=== PATIENT | female | born 2005 | race Caucasian/White ===

== ENCOUNTER 2025-01-24 10:53 | Outpatient (AMB) | payer MEDICAID, SELFPAY ==
[2025-01-24 11:12] VITALS: BP 116/80; PULSE 79; RESP 18; TEMP 36; O2SAT 99; BMI 33.6
--- NOTE | 2025-01-24 11:12 | GYNCLNT_ITS ---
Vital Signs 01/24/25 11:12 Height 1.7 m Height Method Stated Weight 97.182 kg Weight Measurement Method Standing Scale BMI 33.6 BP 116/80 Blood Pressure Source Automatic Cuff Blood Pressure Location Left Upper Arm Position Sitting Respiration 18 Pulse 79 Pulse Source Monitor Temp 96.8 F Temp Source Oral Pulse Oximetry (%) 99 Oxygen Delivery Method Room Air Allergies/Home Meds Allergies & Medications Allergies No Known Allergies Allergy (Verified 01/24/25 11:17) Medication Reconciliation methocarbamol 750 mg tablet 750 mg PO TID #20 tabs 03/20/24 [Rx Confirmed 01/24/25] naproxen 500 mg tablet 500 mg PO BID #14 tabs 03/20/24 [Rx Confirmed 01/24/25] fluconazole 150 mg tablet 150 mg PO Q3D 2 doses #2 tabs 01/24/25 [Rx] Intake Visit Data Collection New Patient or Established: Established Patient (seen at [facility] within 3 years) Reason for Visit:: PCOS Seen by Clinical Staff ONLY (RN/MA): No White Washer Piler Required: No Do You Feel Safe at Home: Yes Authorities Contacted: N/A PCP or OBGYN visit in last 3 months: No Hx Now: No Are you currently on any form of Control: No Pain Present Currently: No Pain Scale Used: Cristina-Lea/Numerical Pain scale:: 0 Smoking Status Smoking Status: Never smoker 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 1. Little interest or pleasure in doing things: not at all 2. Feeling down, depressed, or hopeless: not at all Total score: 0 PHQ-9 3. Trouble falling or staying asleep, or sleeping too much: Not at all 4. Feeling tired or having little energy: Not at all 5. Poor appetite or overeating: Not at all 6. Feeling bad about yourself - or that you are a failure or have let yourself or your family down: Not at all 7. Trouble concentrating on things, such as reading the newspaper or watching television: Not at all 8. Moving or speaking so slowly that other people could have noticed? - Or the opposite - being so fidgety or restless that you have been moving around a lot more than usual: not at all 9. Thoughts that you would be better off or of hurting yourself in some way: Not at all Total score: 0 If you checked off any problems, how difficult have these problems made it for you to do your work, take care of things at home, or get along with other people?: not difficult at all Source: Developed by Drs. Tony San, Liya Londono, Seth Hanna and colleagues, with an educational nicky from [employer]. Depression screen completed yes Social History Living Situation History Marital Status: Single Lives With: Family Housing: House Tobacco History Smoking Status: Never smoker Second Hand Smoke Exposure: No Alcohol History Alcohol Intake: Never Domestic Abuse History Do You Feel Safe at Home: Yes Past Medical History Past Medical History Have you ever been diagnosed with any of the following: History of Present Illness HPI Narrative Chief Complaint Heavy periods for a few years, severe menstrual symptoms including really bad cramping and discomfort , nausea, dizziness, weakness, and lightheadedness on the first day of period, hair growth on chin and stomach, strange vaginal smells History of Present Illness Jennifer presents with a long-standing history of heavy menstrual periods and associated symptoms. She reports experiencing heavy periods for several years, with symptoms worsening since age 13. The patient's menstrual cycles are regular, occurring monthly. However, she experiences severe symptoms on the first day of her period, including intense cramping, nausea, dizziness, and near-fainting episodes. She describes feeling weak, lightheaded, and experiencing cold sweats. These symptoms are not consistent with every cycle, as she notes some periods are good while others are bad. Typically, her periods last 6 days and are heavy, although her most recent period lasted only 4 days and was less heavy, with reduced pain. Jennifer also reports acne, weight gain despite no changes in diet, and hair growth on her chin and stomach. Additionally, she has noticed unusual vaginal odors, not limited to her menstrual periods. She mentions a previous unsuccessful treatment for a yeast infection. The patient has not undergone any testing such as ultrasounds or blood tests for her menstrual issues. She has not tried control pills or any hormonal treatments, expressing concerns about their use based on her own research. Medical History - Yeast infection (previous) Review of Systems General: Positive for weakness, lightheadedness, cold sweats. Skin: Positive for acne, hair growth on chin and stomach. HEENT: Negative for vision changes. Cardiovascular: Positive for dizziness. Gastrointestinal: Positive for nausea. Genitourinary: Positive for heavy menstrual bleeding, dysmenorrhea, abnormal vaginal odor. Neurological: Positive for loss of balance. Endocrine: Positive for weight gain. Review of Systems Review of Systems Systems Reviewed: All systems reviewed, normal except as documented Exam General Limitations: no limitations General Appearance: alert, in no apparent distress, comfortable, cooperative, healthy appearing, well developed and well groomed Head Head exam: atraumatic, normocephalic and normal inspection Chest Chest inspection: Present normal inspection and symmetric chest wall rise Abdominal Abdominal exam: Present soft and normal bowel sounds Psych Psychiatric exam: Present normal affect and normal mood Skin Skin exam: Present warm, dry, intact and normal color Assessment & Plan Diagnosis / Problem List (1) Acute vaginitis: Status: Acute (2) Abnormal uterine and vaginal bleeding, unspecified: Status: Acute (3) PCOS (polycystic ovarian syndrome): Status: Acute (4) Dysmenorrhea in adolescent: Status: Acute Plan Jennifer, a young woman with a history of heavy menstrual periods since age 13, presents with dysmenorrhea, menorrhagia, and associated symptoms including nausea, dizziness, and cold sweats. Dysmenorrhea and Menorrhagia Assessment: Patient reports heavy menstrual periods with severe cramping and associated symptoms (nausea, dizziness, cold sweats, weakness, lightheadedness) primarily on the first day of menses. Symptoms have been ongoing for several years, starting around age 13. Menstrual cycles are regular, occurring monthly, but symptom severity varies. Recent cycle showed improvement with shorter duration (4 days vs. usual 6 days) and decreased flow. Differential diagnoses include premenstrual dysphoric disorder (PMDD) and polycystic ovary syndrome (PCOS). Further evaluation is necessary to determine the underlying cause. Plan: - Order pelvic ultrasound to evaluate for structural abnormalities and PCOS - Order blood tests to assess hormone levels and rule out other potential causes - Instruct patient to continue tracking menstrual cycles and symptoms using her ary - Discuss treatment options, including hormonal and non-hormonal alternatives, after test results are available - Provide patient education materials on menstrual disorders and treatment options Suspected Bacterial Vaginosis and Yeast Infection Assessment: Patient reports abnormal vaginal odor, not limited to menstrual periods. Previous treatment for yeast infection was ineffective. Symptoms suggest possible bacterial vaginosis, but concurrent yeast infection cannot be ruled out. Plan: - Prescribe combination treatment for both bacterial vaginosis and yeast infection - Provide patient education on vaginal health and hygiene Suspected Polycystic Ovary Syndrome (PCOS) Assessment: Patient reports acne, weight gain without dietary changes, and hair growth on chin and stomach. These symptoms, in combination with menstrual irregularities, raise suspicion for PCOS. Further evaluation is necessary for definitive diagnosis. Plan: - Include PCOS-specific hormone tests in the ordered blood work - Evaluate pelvic ultrasound results for polycystic ovaries - Discuss findings and potential management strategies at follow-up appointment Office Procedures OB Clinic LOC & Office Proc's Nursing/Assessment Patient Status: Established Patient OB Clinic Nursing Assessment: BP Monitoring, Update PMH in EMR and Vital Signs OB Clinic Coordination of Care: Consent,records obtained, informed consent, Education Simp Pt/Fam, Lab and Imaging orders and Staff clarify orders Established Patient Charge Established Patient Point Assignment: 85 Established Patient Point Charge: EP Level 3 (80-115)
== END 2025-01-24 11:28 | disposition home or self-care (01) ==
LOC: HODSOBC 10:53
PROVIDERS: PCP Physician Assistant; Referring Provider Physician Assistant; Supervising Provider Obstetrics & Gynecology; Visit Provider Obstetrics & Gynecology
DX: N76.0 Acute vaginitis (principal); E28.2 Polycystic ovarian syndrome; N93.9 Abnormal uterine and vaginal bleeding, unspecified; N94.6 Dysmenorrhea, unspecified
CPT/HCPCS: 99213; G0463

== ENCOUNTER 2025-02-13 10:31 | Outpatient (AMB) | payer MEDICAID, SELFPAY ==
--- NOTE | 2025-02-13 10:36 | AMB.GYNCLNOT ---
Vital Signs 02/13/25 10:44 Height 1.6 m Height Method Stated Weight 98.656 kg Weight Measurement Method Standing Scale BMI 38.5 BP 122/80 Blood Pressure Source Automatic Cuff Blood Pressure Location Left Upper Arm Position Sitting Respiration 18 Pulse 98 Pulse Source Monitor Temp 98 F Temp Source Oral Pulse Oximetry (%) 98 Oxygen Delivery Method Room Air Allergies/Home Meds Allergies & Medications Allergies No Known Allergies Allergy (Verified 02/13/25 10:45) Medication Reconciliation methocarbamol 750 mg tablet 750 mg PO TID #20 tabs 03/20/24 [Rx Confirmed 02/13/25] naproxen 500 mg tablet 500 mg PO BID #14 tabs 03/20/24 [Rx Confirmed 02/13/25] fluconazole 150 mg tablet 150 mg PO Q3D 2 doses #2 tabs 01/24/25 [Rx Confirmed 02/13/25] Intake Visit Data Collection New Patient or Established: Established Patient (seen at 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 1. Little interest or pleasure in doing things: not at all 2. Feeling down, depressed, or hopeless: not at all Total score: 0 PHQ-9 3. Trouble falling or staying asleep, or sleeping too much: Not at all 4. Feeling tired or having little energy: Not at all 5. Poor appetite or overeating: Not at all 6. Feeling bad about yourself - or that you are a failure or have let yourself or your family down: Not at all 7. Trouble concentrating on things, such as reading the newspaper or watching television: Not at all 8. Moving or speaking so slowly that other people could have noticed? - Or the opposite - being so fidgety or restless that you have been moving around a lot more than usual: not at all 9. Thoughts that you would be better off or of hurting yourself in some way: Not at all Total score: 0 Source: Developed by Drs. Tony San, Liya Londono, Seth Hanna and colleagues, with an educational nicky from [employer]. Depression screen completed yes Social History Living Situation History Lives With: Family Housing: House Tobacco History Smoking Status: Never smoker Second Hand Smoke Exposure: No Alcohol History Alcohol Intake: Never Domestic Abuse History Do You Feel Safe at Home: Yes Past Medical History Past Medical History Have you ever been diagnosed with any of the following: History of Present Illness HPI Narrative Jennifer Keith, a 19-year-old female, presents for follow-up after an initial evaluation to rule out polycystic ovarian syndrome (PCOS) on January 24, 2025. The patient reports no changes in her symptoms since her last visit. She states that she still has not gotten her period, and her other symptoms remain the same. The patient mentions having acne, which was previously discussed as a concern. When asked about her interest in starting treatment to help with her cycles and acne while waiting for the ultrasound results, Jennifer expresses a preference to wait until after the ultrasound is completed before making any treatment decisions. Review of Systems Skin: Positive for acne. Endocrine: Positive for amenorrhea. Exam General General Appearance: alert, in no apparent distress and healthy appearing Head Head exam: atraumatic Neck Neck exam: Present normal inspection and trachea midline Chest Chest inspection: Present normal inspection and symmetric chest wall rise External exam: Present normal external exam; Absent tenderness Neuro Neurological exam: Present oriented X3 Psych Psychiatric exam: Present normal affect and normal mood Results Objective Laboratory: Laboratory, Imaging, and Diagnostic Test Results - Date: 01/24/2025 - DHA: 162 - FSH: 7.417 - 17-Hydroxy: 131 Assessment & Plan Diagnosis / Problem List (1) Dysmenorrhea in adolescent: Status: Acute (2) PCOS (polycystic ovarian syndrome): Status: Acute Plan Jennifer Sagar, a 19-year-old female, presents for follow-up evaluation of suspected polycystic ovarian syndrome (PCOS) with ongoing amenorrhea and acne. Suspected Polycystic Ovarian Syndrome (PCOS) Assessment: Patient was initially evaluated on 01/24/2025 for suspected PCOS. Recent laboratory results, including DHA (162), FSH (7.417), and 17-hydroxy (131), are all within normal ranges. These tests were performed to evaluate for PCOS, assess regulatory hormone function, and rule out genetic causes. Despite normal lab results, the patient reports persistent amenorrhea and acne symptoms. A pelvic ultrasound was ordered but has not yet been performed due to pending insurance authorization. Plan: - Await completion of pelvic ultrasound - Follow up after ultrasound to review results and discuss treatment options - Clinic staff to continue working on insurance authorization for ultrasound - Patient provided with copy of lab results Office Procedures OB Clinic LOC & Office Proc's Nursing/Assessment Patient Status: Established Patient OB Clinic Nursing Assessment: Medication Reconciliation, Update PMH in EMR and Vital Signs OB Clinic Coordination of Care: Complex Care and Chronic Disease 1-5, Consent,records obtained, informed consent, Education Simp Pt/Fam, Results/Orders obtained and Staff clarify orders Established Patient Charge Established Patient Point Assignment: 90 Established Patient Point Charge: EP Level 3 (80-115)
[2025-02-13 10:44] VITALS: BP 122/80; PULSE 98; RESP 18; TEMP 36.6; O2SAT 98; BMI 38.5
== END 2025-02-13 11:13 | disposition home or self-care (01) ==
LOC: HODSOBC 10:31
PROVIDERS: PCP Obstetrics & Gynecology; Referring Provider Obstetrics & Gynecology; Supervising Provider Obstetrics & Gynecology; Visit Provider Obstetrics & Gynecology
DX: N94.6 Dysmenorrhea, unspecified (principal)
CPT/HCPCS: 99213; G0463